=== PATIENT | female | born 1975 | race Two or more races ===

== ENCOUNTER → 2017-01-29 | Outpatient (CLI) | payer BC ==
[~2017-01-29] MED LIST: ALDACTONE25 MG PO; BENAZEPRIL HCL20 MG PO; BENTYL20 MG PO; CALAN120 MG PO; ETHINYL ESTRADIOL PO; IMITREX100 MG PO; LEVONORGESTREL PO; MEDROL DOSEPAK4 MG PO; NORTRIPTYLINE H10 MG PO; PERCOCET 5/31 TABLET PO; SKELAXIN800 MG PO; SUMATRIPTAN SU100 MG PO; TOPIRAMATE50 MG PO; TORADOL10 MG PO; ZOFRAN4 MG PO; ZOMIG5 M1 NS; [UNRECOGNIZED DRUG - REMARK]
== END | disposition home or self-care (01) ==
LOC: CDC 14:05
DX: M50.10 Cervical disc disorder with radiculopathy, unspecified cervical region (principal)
CPT/HCPCS: 93000

== ENCOUNTER 2017-02-04 09:00 | Day surgery (SDC) | payer BC ==
[~2017-02-04] VITALS: Ht 170.2 cm; Wt 68.0 kg
[2017-02-04 09:48] VITALS: BP 113/67
[2017-02-04 10:53] LABS: INTERNAL CONTROL VALID? YES
[2017-02-04 13:50] VITALS: BP 104/67
[2017-02-04 14:50] VITALS: BP 118/60
[2017-02-04 15:45] VITALS: BP 103/68
== END 2017-02-04 16:00 | disposition home or self-care (01) ==
LOC: SDC
PROVIDERS: Neurological Surgery
PROC: 0RB30ZZ Excision of Cervical Vertebral Disc, Open Approach (ICD-10-PCS; principal; 2017-02-04)
DX: M50.123 Cervical disc disorder at C6-C7 level with radiculopathy (principal); M54.16 Radiculopathy, lumbar region; F17.210 Nicotine dependence, cigarettes, uncomplicated
CPT/HCPCS: 72040; 76000; 84703; C1713; J0330; J0690; J1100; J1170; J1885; J2175; J2250; J2405; J2710; J3010

== ENCOUNTER 2017-03-06 21:49 | Emergency (ER) | payer OTHER, BC ==
[~2017-03-06] VITALS: Ht 170.2 cm; Wt 70.8 kg
[2017-03-07] MEDS ORDERED: LIDOCAINE700 MG TP (03:01)
[2017-03-07] MEDS ORDERED: MOTRIN600 MG PO (03:01)
[2017-03-07] MEDS ORDERED: FLEXERIL10 MG PO (03:01)
[2017-03-07 03:12] VITALS: BP 128/71
== END 2017-03-07 03:13 | disposition home or self-care (01) ==
LOC: EME 21:49
DX: S13.4XXA Sprain of ligaments of cervical spine, initial encounter (principal); S16.1XXA Strain of muscle, fascia and tendon at neck level, initial encounter; R51 Headache; V49.40XA Driver injured in collision with unspecified motor vehicles in traffic accident, initial encounter; Z98.890 Other specified postprocedural states; F17.200 Nicotine dependence, unspecified, uncomplicated; Z87.19 Personal history of other diseases of the digestive system
CPT/HCPCS: 70450; 72125; 99281; 99283